=== PATIENT | male | born 1955 | race Two or more races ===

== ENCOUNTER 2024-02-08 06:52 | Inpatient (IN) | payer OTHER, MEDICAID ==
[~2024-02-08] VITALS: Ht 182.9 cm; Wt 116.2 kg
--- NOTE | 2024-02-08 07:08 | ED.PDOC ---
History of Present Illness HPI Comments 68M BIBA w/ prior Hx of 2L, NC of O2 at home and COPD which may be associated to the c/c of congestion. Pt reports on having congestion last night and was unable to breathe due to his "nose all stuffed up". Pt states on having ABD pain this morning as well. Pt notes that he does not walk and is "pretty much" bed bound. PMHx of DM and HTN. Social Hx of tobacco use, but denies substance and alcohol use. Denies chills, fever, N/V/D, CP or other associated symptoms, modifiers, or recent injuries or sick contact at this time. Chief Complaint: Shortness of Breath Time Seen by MD: 07:00 Reviewed Notes: Nurses Notes, Director Of Retail Operations Notes, Medications, Allergies Allergies: Coded Allergies: No Known Drug Allergy (Verified Allergy, Unknown, 02/08/24) Information Source: Patient, Emergency Med Personnel Mode of Arrival: EMS Severity: Moderate Timing: Hours Duration: Since onset, Hours Prehospital treatment: None Past Medical History PAST MEDICAL HISTORY: COPD, DM, HTN Past Medical History (Other): On 2L of O2, NC at home Surgical History: Denies all surgeries Family History Family History: Reviewed,noncontributory to illness, Unknown Social History Smoker: Cigarettes Alcohol: Denies ETOH Use Drugs: Denies Drug Use Lives In: Home Constitutional: denies: chills, diaphoresis, fatigue, fever, malaise, sweats, weakness, others EENTM: denies: blurred vision, double vision, ear bleeding, ear discharge, ear drainage, ear pain, ear ringing, eye pain, eye redness, hearing loss, mouth pain , mouth swelling, nasal discharge, nose bleeding, nose congestion, nose pain, photophobia, tearing, throat pain, throat swelling, voice changes, others Respiratory: reports: SOB at rest, shortness of breath, others (congestion); denies: cough, hemoptysis, orthopnea, SOB with excertion, stridor, wheezing Cardiovascular: denies: chest pain, dizzy spells, diaphoresis, Dyspnea on exertion, edema, irregular heart beat, left arm pain, lightheadedness, palpitations, PND, syncope, others Gastrointestinal: denies: abdomen distended, abdominal pain, blood streaked bowels, constipated, diarrhea, dysphagia, difficulty swallowing, hematemesis, melena, nausea, poor appetite, poor fluid intake, rectal bleeding, rectal pain, vomiting, others Genitourinary: denies: burning, dysuria, flank pain, frequency, hematuria, incontinence, penile discharge, penile sore, pain, testicle pain, testicle swelling, urgency, others Neurological: denies: dizziness, fainting, headache, left sided numbness, left sided weakness, numbness, paresthesia, pre-existing deficit, right sided numbness, right sided weakness, seizure, speech problems, tingling, tremors, weakness, others Musculoskeletal: denies: back pain, gout, joint pain, joint swelling, muscle pain, muscle stiffness, neck pain, others Integumetry: denies: bruises, change in color, change in hair/nails, dryness, laceration, lesions, lumps, rash, wounds, others Allergic/Immunocompromised: denies: Difficulty Healing, Frequent Infections, Hives, Itching, others Hematologic/Lymphatic: denies: anemia, blood clots, easy bleeding, easy bruising, swollen glands, others Endocrine: denies: excessive hunger, excessive sweating, excessive thirst, excessive urination, flushing, intolerance to cold, intolerance to heat, unexplained weight gain, unexplained weight loss, others Psychiatric: denies: anxiety, bipolar disorder, depression, hopeless, panic disorder, schizophrenia, sleepless, suicidal, others All Other Systems: Reviewed and Negative Physical Exam General Appearance: Moderate Distress, Obese HEENT: Normal ENT Inspection, Pharynx Normal, TMs Normal Neck: Full Range of Motion, Non-Tender, Normal, Normal Inspection Respiratory: Chest Non-Tender, Lungs Clear, No Accessory Muscle Use, No Respiratory Distress, Normal Breath Sounds Cardiovascular: No Edema, No JVD, No Murmur, No Gallop, Normal Peripheral Pulses, Regular Rate/Rhythm Breast Exam: Deferred Gastrointestinal: No Organomegaly, Non Tender, No Pulsatile Mass, Normal Bowel Sounds, Soft Genitalia: Deferred Pelvic: Deferred Rectal: Deferred Extremities: No calf tenderness, Normal capillary refill, Normal inspection, Normal range of motion, Non-tender, No pedal edema Musculoskeletal : Apperance: Normal Neurologic: Alert, 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 Was a procedure done?: No Differential Dx Considerations may include: CHF COPD X-Ray, Labs, Meds, VS Vital Signs Date Time Temp Pulse Resp B/P (MAP) Pulse Ox O2 Delivery O2 Flow Rate FiO2 02/08/24 06:58 98.4 82 20 126/61 (82) 98 Patient alert. Complaining of shortness a breath. He is on oxygen. Vitals stable. States that he has been congested. Establish intravenous access. Was given steroid. Was given breathing treatment. EKG reviewed does not show any acute changes. Continues to smoke cigarettes. Counseled patient on effects of smoking cigarettes for 15 minutes. Reviewed his previous visit. Explained to the patient. Continue cardiac monitoring. Time of 1ST Reevaluation: 07:30 Reevaluation 1ST: Unchanged Patient Education/Counseling: Diagnosis, Treatment, Prognosis Family Education/Counseling: No Family Present Departure 1 Departure Time of Disposition: 07:11 Impression: Primary Impression: Acute respiratory failure Qualified Codes: J96.01 - Acute respiratory failure with hypoxia Additional Impressions: COPD exacerbation Pneumonitis Disposition: ADMITTED INPATIENT Admit to: Med Surg Condition: Guarded Critical Care Note Critical Care Time?: Yes (45 min-critical care time only) Stability Stability form required: No Heart Score Heart Score: Heart Score Response (Comments) Value History Slightly Suspicious 0 EKG Normal 0 Age >65 2 Risk Factors >3 or Hx ASHD 2 Troponin Normal limit 0 Total 4 I personally scribed for DANTE HURT MD ([email or web address]) on 02/08/24 at 07:08. Electronically submitted by Cecil Nails ([email or web address]). DANTE HURT MD Feb 08, 2024 07:08
[2024-02-08] MEDS: IPRATROPIUM BROM 0.5 MG/2.5ML INH SOL NEB ONE (07:31)
[2024-02-08] MEDS: ALBUTEROL SULF 2.5 MG/0.5ML(0.5%) NEB SOLN NEB ONE (07:31)
[2024-02-08 07:32] LABS: Chloride 101 mmol/L (98-107); Potassium 3.5 mmol/L (3.5-5.1); Sodium 140 mmol/L (136-145)
[2024-02-08 07:33] LABS: Anion Gap 5 (5-15); Carbon Dioxide 34 mmol/L (20-31)
[2024-02-08 07:34] VITALS: PULSE 80; RESP 22; O2SAT 93
[2024-02-08 07:34] LABS: Calcium 10.1 mg/dL (8.7-10.4)
[2024-02-08 07:38] LABS: Glucose 289 mg/dL (74-106)
[2024-02-08 07:39] LABS: BUN/Creatinine Ratio 17.1 (10.0-20.0); Blood Urea Nitrogen 14 mg/dL (9-23)
[2024-02-08 07:42] LABS: Basophils # (auto) 0 10 ^3/uL (0-0.2); Basophils % (auto) 0.3 % (0.0-2.0); Eosinophils # (auto) 0 10 ^3/uL (0-0.8); Eosinophils % (auto) 0.3 % (0.0-7.0); Hemoglobin 11.2 g/dL (13.5-17.5); Lymphocytes # (auto) 0.8 10 ^3/uL (0.4-5.4); Lymphocytes % (auto) 9.7 % (10.0-50.0); Monocytes # (auto) 0.4 10 ^3/uL (0-1.3)
[2024-02-08 07:45] LABS: Hematocrit 34.5 % (41.0-53.0); Mean Corpuscular Hemoglobin 25.9 pg (28.0-32.0); Mean Corpuscular Hgb Conc. 32.4 g/dL (32.0-36.0); Monocytes % (auto) 4.1 % (0.0-12.0); Neutrophils # (auto) 7.3 10 ^3/uL (1.6-8.6); Neutrophils % (auto) 85.6 % (37.0-80.0); Platelet Count (auto) 172 10^3/uL (140-450); Red Blood Cells 4.31 10^6/uL (4.5-5.90); Red Cell Distribution Width 16.5 % (11.8-14.3); White Blood Cell 8.6 10^3/uL (4.4-10.8)
--- NOTE | 2024-02-08 08:00 | DVH ---
CHEST RADIOGRAPH Indication:sob Technique: Single frontal view of the chest was obtained COMPARISON: None FINDINGS: Lines and Tubes: None Lungs: Mild congestion. Pleura: Possible trace bilateral pleural effusions. No pneumothorax. Cardiomediastinal contours: Unremarkable Bones: Unremarkable IMPRESSION: Mild congestion. Possible trace bilateral pleural effusions.
[2024-02-08] MEDS: methylPREDNISolone SOD SUCC 125 MG/2 ML VL IV ONE (08:06)
[2024-02-08] MEDS ORDERED: ACETAMINOPHEN 325 MG TAB PO PRN (08:45)
[2024-02-08] MEDS ORDERED: TEMAZEPAM 15 MG CAP PO PRN (08:45)
[2024-02-08] MEDS ORDERED: DEXTROSE (50%) 50ML SYRG IV PRN (08:45)
[2024-02-08] MEDS ORDERED: DOCUSATE SOD 100 MG CAP PO PRN (08:45)
[2024-02-08 09:10] VITALS: BP 139/64; PULSE 77; RESP 14; TEMP 98.3; O2SAT 97
[2024-02-08] MEDS: AZITHROMYCIN 250 MG TAB PO SCH (10:29)
[2024-02-08] MEDS: cefTRIAXone 1GM/50ML D5W 50 ML IV SCH (10:29)
--- NOTE | 2024-02-08 10:47 | DVHHP2 ---
History of Present Illness Reason for Visit: shortness of breath History of Present Illness 68 yo obese male from rehab facility came for acute shortness of breath patient with history COPD DM HTN and at baseline on 2 L nasal canal was having severe respiratory distress brought in by patient according to patient facility had him on oxygen that started having water in the line and he was having a lot of water go in his lungs patient will be admitted for copd exacerbation and treated as PNA development Cardiovascular: HTN Pulmonary: COPD, Pneumonia GI: Other (obese ) Endocrine: Diabetes Smoke: # pack years (heavy smoker ) Review of Systems Constitutional: Yes: Weakness; No: Fever, Chills, Sweats, Malaise, Other Eyes: No: Pain, Vision change, Conjunctivae inflammation, Eyelid inflammation, Other, Redness Respiratory: Cough, Shortness of breath, SOB with excertion, Wheezing; No: Dry, Hemoptysis, Pleuritic Pain, Sputum, Wheezing, Other Cardiovascular: No: Chest Pain, Palpitations, Orthopnea, Paroxysmal Noc. Dyspnea, Edema, Lt Headedness, Other Gastrointestinal: No: Nausea, Vomiting, Abdominal Pain, Diarrhea, Constipation, Melena, Hematochezia, Other Genitourinary: No Dysuria, No Frequency, No Incontinence, No Hematuria, No Retention, No Other Musculoskeletal: No: other, neck pain, shoulder pain, arm pain, back pain, hand pain, leg pain, foot pain Skin: No: Rash, Lesions, Jaundice, Bruising, Other Neurological: No: Weakness, Numbness, Incoordination, Change in speech, Confusion, Seizures, Other Allergies: Coded Allergies: No Known Drug Allergy (Verified Allergy, Unknown, 02/08/24) Medications Current Medications Medications Dose Ordered Sig/Miracle Route Start Time Stop Time Status Last Admin Dose Admin Docusate Sodium 100 mg BIDPRN PRN PO 02/08/24 08:45 Acetaminophen 650 mg Q6HP PRN PO 02/08/24 08:45 Temazepam 15 mg QHSP PRN PO 02/08/24 08:45 Acetaminophen/ Hydrocodone Bitart 1 tab Q4HP PRN PO 02/08/24 08:45 Diagnostic Test (Pha) 1 strip ACHS 02/08/24 11:30 Insulin Human Regular HS SC 02/08/24 22:00 Insulin Human Regular AC SC 02/08/24 11:30 Dextrose 50 ml UD PRN IV 02/08/24 08:45 Methylprednisolone Sodium Succinate 40 mg Q8HR IV 02/08/24 14:00 Albuterol 2.5 mg Q4HWA PRN NEB 02/08/24 08:45 Ipratropium [place] 0.5 mg Q4HWA PRN NEB 02/08/24 08:45 Ceftriaxone Sodium 50 ml @ 100 mls/hr DAILY IV 02/08/24 10:00 02/08/24 10:29 100 MLS/HR Azithromycin 250 mg DAILY PO 02/08/24 10:00 02/08/24 10:29 250 MG Exam Vital Signs Vital Signs Date Time Temp Pulse Resp B/P (MAP) Pulse Ox O2 Delivery O2 Flow Rate FiO2 02/08/24 09:48 89 02/08/24 09:10 98.3 14 139/64 97 2.0 98.3 02/08/24 07:34 Nasal Cannula* 28 General Appearance: Alert, Oriented X3 HEENT: Atraumatic, PERRLA Respiratory: Other (wheezing improving ) Cardiovascular: Regular rate, Normal S1 Abdominal: Normal bowel sounds, Soft, No tenderness Extremities: No clubbing, No cyanosis Skin: No rashes, No breakdown Neuro: Normal speech, Strength at 5/5 X4 ext Labs/Xrays Labs Test 02/08/24 07:12 Range/Units White Blood Count 8.6 4.4-10.8 10^3/uL Red Blood Count 4.31 L 4.5-5.90 10^6/uL Hemoglobin 11.2 L 13.5-17.5 g/dL Hematocrit 34.5 L 41.0-53.0 % Mean Corpuscular Volume 80.0 80.0-100.0 fL Mean Corpuscular Hemoglobin 25.9 L 28.0-32.0 pg Mean Corpuscular Hemoglobin Concent 32.4 32.0-36.0 g/dL Red Cell Distribution Width 16.5 H 11.8-14.3 % Platelet Count 172 140-450 10^3/uL Mean Platelet Volume 9.9 6.9-10.8 fL Neutrophils (%) (Auto) 85.6 H 37.0-80.0 % Lymphocytes (%) (Auto) 9.7 L 10.0-50.0 % Monocytes (%) (Auto) 4.1 0.0-12.0 % Eosinophils (%) (Auto) 0.3 0.0-7.0 % Basophils (%) (Auto) 0.3 0.0-2.0 % Neutrophils # (Auto) 7.3 1.6-8.6 10 ^3/uL Lymphocytes # (Auto) 0.8 0.4-5.4 10 ^3/uL Monocytes # (Auto) 0.4 0-1.3 10 ^3/uL Eosinophils # (Auto) 0 0-0.8 10 ^3/uL Basophils # (Auto) 0 0-0.2 10 ^3/uL Nucleated Red Blood Cells 0.0 % Sodium Level 140 136-145 mmol/L Potassium Level 3.5 3.5-5.1 mmol/L Chloride Level 101 98-107 mmol/L Carbon Dioxide Level 34 H 20-31 mmol/L Anion Gap 5 5-15 Blood Urea Nitrogen 14 9-23 mg/dL Creatinine 0.82 0.700-1.30 mg/dL Glomerular Filtration Rate Calc 96 >90 mL/min BUN/Creatinine Ratio 17.1 10.0-20.0 Serum Glucose 289 H 74-106 mg/dL Calcium Level 10.1 8.7-10.4 mg/dL Troponin I High Sensitivity 8 </=54 ng/L B-Type Natriuretic Peptide 38.19 0-100 pg/mL Assessment/Plan Assessment/Plan Admit To Tele COPD Exacerbation suspected super imposed PNA PO and IV abx PRN Breathing treatments duonebs steroids q8 low dose DM monitor for hyperglycemia while on steroids insulin sliding scale morbidly obese diabetic diet HTN c/w home meds for bp management Plan discussed with: Patient My Orders Orders - DOUG HARRISON MD Procedure Category Date Status Time Admit ADMIT 02/08/24 Transmitted 08:35 Code Status CODE 02/08/24 Transmitted 08:35 Vital Signs [facility] 02/08/24 In Process 08:35 Review Orders With [facility] 02/08/24 In Process Adm. 08:35 Docusate Sodium PHA 02/08/24 In Process Capsule (Colace 08:45 Acetaminophen Tablet PHA 02/08/24 In Process (Tylenol Tablet) 08:45 Temazepam (Restoril) PHA 02/08/24 In Process 08:45 Notify Of Changes [facility] 02/08/24 In Process From Base 08:35 Advance Directive [facility] 02/08/24 In Process 08:35 Basic Metabolic Panel LAB 02/09/24 Verified 04:00 Complete Blood Count LAB 02/09/24 Verified 04:00 Patient Condition ORDERS 02/08/24 Transmitted 08:35 Allergies [facility] 02/08/24 In Process 08:35 Hydrocodone-Acet PHA 02/08/24 In Process 5/325mg Tab ([place] 08:45 Notify Md Of Changes [facility] 02/08/24 In Process From Base 08:35 Die Lay Out Worker For D[facility] 02/08/24 In Process 24 Hours 08:35 Emergency Dysrhythmia [facility] 02/08/24 In Process Protocol 08:35 Rhythm Strips Once [facility] 02/08/24 In Process Every Shift 08:35 Oxygen By Nasal RT 02/08/24 Transmitted Cannula 08:35 Glucose Blood PHA 02/08/24 In Process (Accu-Chek Comfort 11:30 Insulin R (Human) PHA 02/08/24 In Process (Insulin R) 22:00 Insulin R (Human) PHA 02/08/24 In Process (Insulin R) 11:30 Dextrose 50% Syringe PHA 02/08/24 In Process 08:45 Methylprednisolone PHA 02/08/24 In Process Sod Succ (Solu Medrol 14:00 Albuterol Medneb PHA 02/08/24 In Process (Ventolin Medneb) 08:45 Ipratropium Medneb PHA 02/08/24 In Process (Atrovent Medneb) 08:45 Med Neb Initial RT 02/08/24 Logged Treatment 08:35 Ceftriaxone 1gm/50ml PHA 02/08/24 In Process D5w (Rocephin) 10:00 Azithromycin Tablet PHA 02/08/24 In Process (Zithromax Tablet) 10:00 Problem List: (1) Acute respiratory failure (2) Pneumonitis (3) COPD exacerbation Date of Service: Feb 08, 2024 Billing Provider: DOUG HARRISON MD Common Visit Codes: [id number] INP/OBS CARE (HIGH) DOUG HARRISON MD Feb 08, 2024 10:47
[2024-02-08] MEDS: InsuLIN REG 1unit/0.01ml Soln (100units/ml) SC SCH ×2 (11:38→21:14)
[2024-02-08] MEDS: ACCU-CHEK COMFORT CURVE STRIP VI SCH (11:40)
[2024-02-08] MEDS: HYDROcodone-ACET 5/325MG TAB PO PRN (13:08)
[2024-02-08] MEDS: methylPREDNISolone SOD SUCC 40 MG/ML VL IV SCH (14:28)
[2024-02-08 15:00] VITALS: BP 150/81; PULSE 80; RESP 14; TEMP 98.1; O2SAT 92
[2024-02-08 18:55] VITALS: O2SAT 96
[2024-02-08 20:00] VITALS: PULSE 65; PULSE 72; RESP 20; O2SAT 93
[2024-02-08 21:00] VITALS: BP 146/63; PULSE 65; RESP 20; TEMP 98.5; O2SAT 93
[2024-02-09] VITALS (10 sets, daily range): BP systolic 133–159; BP diastolic 61–82; PULSE 66–86; RESP 18–19; TEMP 97.6–98.6; O2SAT 93–98
[2024-02-09] MEDS: InsuLIN REG 1unit/0.01ml Soln (100units/ml) SC SCH ×3 (01:49→21:10)
[2024-02-09 06:19] LABS: Basophils # (auto) 0 10 ^3/uL (0-0.2); Basophils % (auto) 0.1 % (0.0-2.0); Eosinophils # (auto) 0 10 ^3/uL (0-0.8); Hemoglobin 10.6 g/dL (13.5-17.5); Lymphocytes # (auto) 1.4 10 ^3/uL (0.4-5.4); Monocytes # (auto) 0.7 10 ^3/uL (0-1.3)
[2024-02-09 06:30] LABS: Hematocrit 32.4 % (41.0-53.0); Lymphocytes % (auto) 15.3 % (10.0-50.0); Mean Corpuscular Hemoglobin 25.8 pg (28.0-32.0); Mean Corpuscular Hgb Conc. 32.7 g/dL (32.0-36.0); Monocytes % (auto) 7.3 % (0.0-12.0); Neutrophils # (auto) 7.2 10 ^3/uL (1.6-8.6); Neutrophils % (auto) 77.3 % (37.0-80.0); Platelet Count (auto) 178 10^3/uL (140-450); Red Cell Distribution Width 16.6 % (11.8-14.3); White Blood Cell 9.3 10^3/uL (4.4-10.8)
[2024-02-09 06:34] LABS: Anion Gap 8 (5-15); Carbon Dioxide 32 mmol/L (20-31); Chloride 101 mmol/L (98-107); Sodium 141 mmol/L (136-145)
[2024-02-09 06:35] LABS: Calcium 10.2 mg/dL (8.7-10.4)
[2024-02-09 06:40] LABS: BUN/Creatinine Ratio 17.7 (10.0-20.0); Blood Urea Nitrogen 14 mg/dL (9-23); Glucose 269 mg/dL (74-106)
--- NOTE | 2024-02-09 11:28 | DVHPN2 ---
Subjective The patient is seen and examined at bedside. No complaint today. Reviewed: Care Plan, H&P, Labs, Medications, Previous Orders, Radiology Changes from previous H/P or p: No Changes Eyes: No Pain, No Vision change, No Conjunctivae inflammation, No Eyelid inflammation, No Other, No Redness Cardiovascular: No Chest Pain, No Palpitations, No Orthopnea, No Paroxysmal Noc. Dyspnea, No Edema, No Lt Headedness, No Other Respiratory: Cough; No Dry; Shortness of breath, SOB with excertion, Wheezing; No Hemoptysis, No Pleuritic Pain, No Sputum, No Other Gastrointestinal: No Nausea, No Vomiting, No Abdominal Pain, No Diarrhea, No Constipation, No Melena, No Hematochezia, No Other Genitourinary: No Dysuria, No Frequency, No Incontinence, No Hematuria, No Retention, No Other Musculoskeletal: No other, No neck pain, No shoulder pain, No arm pain, No back pain, No hand pain, No leg pain, No foot pain Skin: No Rash, No Lesions, No Jaundice, No Bruising, No Other Objective Vitals Vital Signs Date Time Temp Pulse Resp B/P (MAP) Pulse Ox O2 Delivery O2 Flow Rate FiO2 02/09/24 10:16 98 Nasal Cannula* 2 28 02/09/24 09:00 97.6 68 18 133/64 (87) 97.6 Intake/Output Intake and Output 02/09/24 07:00 Intake Total 420 ml Output Total 450 ml Balance -30 ml Intake Oral 370 ml IV Total 50 ml Output Urine Total 450 ml # Voids 2 # Bowel Movements 2 General Appearance: Alert, Oriented X3, Cooperative, No acute distress HEENT: Atraumatic, PERRLA, EOMI, Mucous membr. moist/pink Neck: Supple Lungs: Clear to auscultation, Normal air movement Cardiovascular: Regular rate, Normal S1, Normal S2, No murmurs, Gallops, Rubs Abdomen: Normal bowel sounds, Soft, No tenderness Neuro: Cranial nerves 3-12 NL Psych/Mental Status: Mental status NL Medications Current Medications Medications Dose Ordered Sig/Miracle Route Start Time Stop Time Status Last Admin Dose Admin Docusate Sodium 100 mg BIDPRN PRN PO 02/08/24 08:45 Acetaminophen 650 mg Q6HP PRN PO 02/08/24 08:45 Temazepam 15 mg QHSP PRN PO 02/08/24 08:45 Acetaminophen/ Hydrocodone Bitart 1 tab Q4HP PRN PO 02/08/24 08:45 02/09/24 10:26 1 TAB Diagnostic Test (Pha) 1 strip ACHS 02/08/24 11:30 02/09/24 06:25 1 STRIP Insulin Human Regular HS SC 02/08/24 22:00 02/08/24 21:14 10 UNITS Dextrose 50 ml UD PRN IV 02/08/24 08:45 Methylprednisolone Sodium Succinate 40 mg Q8HR IV 02/08/24 14:00 02/09/24 06:32 40 MG Albuterol 2.5 mg Q4HWA PRN NEB 02/08/24 08:45 Ipratropium [place] 0.5 mg Q4HWA PRN NEB 02/08/24 08:45 Ceftriaxone Sodium 50 ml @ 100 mls/hr DAILY IV 02/08/24 10:00 02/09/24 10:26 100 MLS/HR Azithromycin 250 mg DAILY PO 02/08/24 10:00 02/09/24 10:26 250 MG Insulin Human Regular Q4HR SC 02/09/24 02:00 02/09/24 10:47 12 UNITS Laboratory Results Laboratory Tests 02/09/24 05:47 Chemistry Test 02/09/24 05:47 Calcium Level 10.2 mg/dL (8.7-10.4) Labs and/or images reviewed: Labs reviewed by me Assessment/Plan Assessment/Plan COPD Exacerbation suspected super imposed PNA DM HTN Plan: Continuing current management. Continuing with IV antibiotic. Continuing with sliding scale insulin. Continuing with Solu-Medrol IV. Continuing with hypertensive medication. Plan discussed with: Patient My Orders Orders - OLAYINKA TIDWELL MD Procedure Category Date Status Time Potassium Er Tablet PHA 02/09/24 Logged (Klor-Con Tablet) 11:00 Date of Service: Feb 09, 2024 Billing Provider: OLAYINKA TIDWELL MD Common Visit Codes: [id number] INP/OBS CARE(HIGH) OLAYINKA TIDWELL MD Feb 09, 2024 11:28
[2024-02-09] MEDS: POTASSIUM CHL 20 Meq TABLET PO ONE (13:56)
[2024-02-09] MEDS ORDERED: DEXTROSE (50%) 50ML SYRG IV PRN (15:15)
[2024-02-09] MEDS: ACCU-CHEK COMFORT CURVE STRIP VI SCH (17:30)
[2024-02-09] MEDS: INSULIN LANTUS (GLARGINE) 1 /0.01ml (100units/ml) SC SCH (21:11)
[2024-02-10] VITALS (12 sets, daily range): BP systolic 151–168; BP diastolic 72–90; PULSE 62–73; RESP 18–22; TEMP 97.6–99.1; O2SAT 93–99
--- NOTE | 2024-02-10 13:40 | DVHDS2 ---
Discharge Summary Date of Admission Feb 08, 2024 at 08:35 Date of Discharge: Feb 10, 2024 Labs/Diagnostic Data: Laboratory Results Test 02/10/24 11:24 02/09/24 05:47 02/08/24 07:12 POC Glucose 314 mg/dl (70-106) White Blood Count 9.3 10^3/uL (4.4-10.8) Red Blood Count 4.10 10^6/uL (4.5-5.90) Hemoglobin 10.6 g/dL (13.5-17.5) Hematocrit 32.4 % (41.0-53.0) Mean Corpuscular Volume 79.0 fL (80.0-100.0) Mean Corpuscular Hemoglobin 25.8 pg (28.0-32.0) Mean Corpuscular Hemoglobin Concent 32.7 g/dL (32.0-36.0) Red Cell Distribution Width 16.6 % (11.8-14.3) Platelet Count 178 10^3/uL (140-450) Mean Platelet Volume 9.8 fL (6.9-10.8) Neutrophils (%) (Auto) 77.3 % (37.0-80.0) Lymphocytes (%) (Auto) 15.3 % (10.0-50.0) Monocytes (%) (Auto) 7.3 % (0.0-12.0) Eosinophils (%) (Auto) 0.0 % (0.0-7.0) Basophils (%) (Auto) 0.1 % (0.0-2.0) Neutrophils # (Auto) 7.2 10 ^3/uL (1.6-8.6) Lymphocytes # (Auto) 1.4 10 ^3/uL (0.4-5.4) Monocytes # (Auto) 0.7 10 ^3/uL (0-1.3) Eosinophils # (Auto) 0 10 ^3/uL (0-0.8) Basophils # (Auto) 0 10 ^3/uL (0-0.2) Nucleated Red Blood Cells 0.0 % Sodium Level 141 mmol/L (136-145) Potassium Level 3.0 mmol/L (3.5-5.1) Chloride Level 101 mmol/L (98-107) Carbon Dioxide Level 32 mmol/L (20-31) Anion Gap 8 (5-15) Blood Urea Nitrogen 14 mg/dL (9-23) Creatinine 0.79 mg/dL (0.700-1.30) Glomerular Filtration Rate Calc 97 mL/min (>90) BUN/Creatinine Ratio 17.7 (10.0-20.0) Serum Glucose 269 mg/dL (74-106) Calcium Level 10.2 mg/dL (8.7-10.4) Troponin I High Sensitivity 8 ng/L (</=54) B-Type Natriuretic Peptide 38.19 pg/mL (0-100) Other Laboratory Tests 02/09/24 05:47 Brief Hx & Hospital Course: 68 yo obese male from rehab facility came for acute shortness of breath patient with history COPD DM HTN and at baseline on 2 L nasal canal was having severe respiratory distress brought in by patient according to patient facility had him on oxygen that started having water in the line and he was having a lot of water go in his lungs patient will be admitted for copd exacerbation and treated as PNA development COPD Exacerbation suspected super imposed PNA DM HTN continue current tx supplemental o2 discharged to home but pt states he is not feeling well and would like to be discharged in AM Condition at Discharge: Fair Final Diagnosis/Problems List see above Discharge Disposition: Home Discharge Statement: "Patient was advised to return to the ER or call 911 if any headaches, dizziness, shortness of breath, chest pain, abdominal pain, bleeding, fevers, or worsening of medical condition. Patient was counseled about treatment plan, medications, possible side effects, patientverbalized understanding. All questions were answered to the best of my ability. This discharge took greater then 30 minutes in planning, reviewing documentation, counseling the patient, and discussing with other team members." ASSESSMENT ASSESSMENT Assessment Date of Service: Feb 10, 2024 Billing Provider: KAMI MOSES DO Common Visit Codes: 61031-BPD/OBS DISCH DAY >30min KAMI MOSES DO Feb 10, 2024 13:40
[2024-02-10] MEDS: hydrALAZINE HCL 20 MG/ML VL IV PRN (17:48)
[2024-02-10] MEDS: ALBUTEROL SULF 2.5 MG/0.5ML(0.5%) NEB SOLN NEB PRN (22:24)
[2024-02-10] MEDS: IPRATROPIUM BROM 0.5 MG/2.5ML INH SOL NEB PRN (22:24)
[2024-02-11] VITALS (7 sets, daily range): BP systolic 133–168; BP diastolic 70–102; PULSE 61–68; RESP 18–22; TEMP 97.4–98.2; O2SAT 94–98
--- NOTE | 2024-02-11 12:57 | DVHINCON2 ---
Date of service: Feb 10, [address] Hawk Reason for Consultation AE COPD History of Present Illness 60-year-old man history of COPD, diabetes mellitus type 2, hypertension who presented with a chief complaint of congestion and wheezing. He was having difficulty breathing due to congestion. He notes abdominal pain. He was bed- bound. He was an active smoker. No fever or chills. No nausea or vomiting or diarrhea. No constipation. No recent sick contacts. No recent travel history. Pulmonary consultation is called due to acute exacerbation of COPD. Review of systems: 14 point review of systems is negative unless otherwise noted above. Past medical history: COPD, diabetes mellitus type 2, hypertension, nicotine dependence, obesity , chronic hypoxic respiratory failure, dependence on supplemental oxygen Past surgical history: None mentioned in prior surgeries. Medications: Reviewed Allergies: No known drug allergy. Family history: No family history of premature CAD. No family history of lung disease Social history: Nicotine dependence, cigarette smoker. No Alcohol use. No illicit drug use. Family History: FHx: heart disease G8 MOTHER Seizure disorder G8 BROTHER Allergies: Coded Allergies: No Known Drug Allergy (Verified Allergy, Unknown, 02/08/24) Current Medications Current Medications Medications (Trade) Dose Ordered Sig/Miracle Route PRN Reason Start Time Stop Time Status Last Admin Hydralazine HCl (Apresoline Injection) 10 mg Q6HP PRN IV SBP>150 02/10/24 17:15 02/10/24 17:48 Vital Signs Vital Signs Date Time Temp Pulse Resp B/P (MAP) Pulse Ox O2 Delivery O2 Flow Rate FiO2 02/11/24 09:00 98.2 66 21 159/75 (103) 94 98.2 02/11/24 08:58 2.0 28 02/11/24 07:26 Nasal Cannula* Physical Exam Gen.: Patient lying in bed in mild apparent distress. On supplemental oxygen. Head: Normocephalic, atraumatic Eyes: EOMI/PERRLA. Ears: Normal hearing. Normal anatomy. Neck/trachea: Trachea midline, supple. Nose: Normal external anatomy. Mouth: Moist mucous membranes. Chest: Decreased air entry bilaterally. Faint wheezing. No rhonchi. Cardio vascular: Positive S1, positive S2. Regular rate and rhythm. Abdomen: Positive bowel sounds in all 4 quadrants. Soft, non-tender, non- distended. : Deferred. Rectal: Deferred Skin: Warm, dry. Extremities: 2+ radial pulses bilaterally. No lower extremity edema. Neuro: Awake, alert, oriented x3. No gross motor or sensory deficits. Cranial nerves II through XII intact. Gait not assessed. Labs/Diagnostic Data Labs Test 02/11/24 11:57 02/09/24 05:47 02/08/24 07:12 Range/Units POC Glucose 337 H 70-106 mg/dl White Blood Count 9.3 4.4-10.8 10^3/uL Red Blood Count 4.10 L 4.5-5.90 10^6/uL Hemoglobin 10.6 L 13.5-17.5 g/dL Hematocrit 32.4 L 41.0-53.0 % Mean Corpuscular Volume 79.0 L 80.0-100.0 fL Mean Corpuscular Hemoglobin 25.8 L 28.0-32.0 pg Mean Corpuscular Hemoglobin Concent 32.7 32.0-36.0 g/dL Red Cell Distribution Width 16.6 H 11.8-14.3 % Platelet Count 178 140-450 10^3/uL Mean Platelet Volume 9.8 6.9-10.8 fL Neutrophils (%) (Auto) 77.3 37.0-80.0 % Lymphocytes (%) (Auto) 15.3 10.0-50.0 % Monocytes (%) (Auto) 7.3 0.0-12.0 % Eosinophils (%) (Auto) 0.0 0.0-7.0 % Basophils (%) (Auto) 0.1 0.0-2.0 % Neutrophils # (Auto) 7.2 1.6-8.6 10 ^3/uL Lymphocytes # (Auto) 1.4 0.4-5.4 10 ^3/uL Monocytes # (Auto) 0.7 0-1.3 10 ^3/uL Eosinophils # (Auto) 0 0-0.8 10 ^3/uL Basophils # (Auto) 0 0-0.2 10 ^3/uL Nucleated Red Blood Cells 0.0 % Sodium Level 141 136-145 mmol/L Potassium Level 3.0 L 3.5-5.1 mmol/L Chloride Level 101 98-107 mmol/L Carbon Dioxide Level 32 H 20-31 mmol/L Anion Gap 8 5-15 Blood Urea Nitrogen 14 9-23 mg/dL Creatinine 0.79 0.700-1.30 mg/dL Glomerular Filtration Rate Calc 97 >90 mL/min BUN/Creatinine Ratio 17.7 10.0-20.0 Serum Glucose 269 H 74-106 mg/dL Calcium Level 10.2 8.7-10.4 mg/dL Troponin I High Sensitivity 8 </=54 ng/L B-Type Natriuretic Peptide 38.19 0-100 pg/mL Assessment Impression: Acute exacerbation of COPD Chronic hypoxic respiratory failure Dependence on supplemental oxygen Nicotine dependence Obesity with a BMI of 34.7 Pleural effusion , trace, bilaterally Atelectasis Hypokalemia Plan: CXR image and report reviewed. Mild pulmonary vascular congestion. Trace bilateral pleural effusions. Atelectasis. Supplemental oxygen 2 LPM via NC Keep O2 saturation above 92%. Continue antibiotics for AE COPD. Bronchodilators IV steroids, taper as tolerated Monitor renal function. Monitor electrolytes. Supplement as necessary. Accucheks, ISS. GI/DVT prophylaxis. Prognosis: Poor given multiple comorbidities. Rest of plan per hospitalist and other consultants. Thank you Dr. Hawk for allowing me to participate in this patient's care. Further recommendations will depend on patient's clinical course. Please do not hesitate to contact me if you have any questions or concerns. This medical document was created using an electronic medical record system with [employer] dictation system. Although this document has been carefully reviewed, there may still be some phonetic and typographical errors. These ar eas are purely typographical due to imperfections of the software programs, and do not reflect any compromise in the patient's medical care. Plan discussed with: Patient, Other (CAMILA Cifuentes MD) DARSHAN WAN MD Feb 11, 2024 12:57
--- NOTE | 2024-02-11 13:00 | DVHPN2 ---
Progress Note - Dictate Date Seen: Feb 11, 2024 Medical Necessity Reason Pt with a Central, PICC or Fol: No Subjective Patient seen and examined at bedside. No new complaints. On supplemental oxygen Overnight events reviewed. vital signs Vital Sign Date Time Temp Pulse Resp B/P (MAP) Pulse Ox O2 Delivery O2 Flow Rate FiO2 02/11/24 09:00 98.2 66 21 159/75 (103) 94 98.2 02/11/24 08:58 2.0 28 02/11/24 07:26 Nasal Cannula* Total Intake and Output 02/10/24 02/10/24 02/11/24 15:00 23:00 07:00 Intake Total 50 ml 800 ml 825 ml Balance 50 ml 800 ml 825 ml medications Current Medications Medications Dose Ordered Sig/Miracle Route Start Time Stop Time Status Last Admin Dose Admin Docusate Sodium 100 mg BIDPRN PRN PO 02/08/24 08:45 Acetaminophen 650 mg Q6HP PRN PO 02/08/24 08:45 Temazepam 15 mg QHSP PRN PO 02/08/24 08:45 Acetaminophen/ Hydrocodone Bitart 1 tab Q4HP PRN PO 02/08/24 08:45 02/11/24 02:10 Methylprednisolone Sodium Succinate 40 mg Q8HR IV 02/08/24 14:00 02/11/24 06:39 Albuterol 2.5 mg Q4HWA PRN NEB 02/08/24 08:45 02/11/24 07:26 Ipratropium [place] 0.5 mg Q4HWA PRN NEB 02/08/24 08:45 02/11/24 07:26 Ceftriaxone Sodium 50 ml @ 100 mls/hr DAILY IV 02/08/24 10:00 02/11/24 10:10 Azithromycin 250 mg DAILY PO 02/08/24 10:00 02/11/24 10:09 Insulin Glargine 20 units BID@1000,2200 SC 02/09/24 22:00 02/11/24 10:09 Diagnostic Test (Pha) 1 strip ACHS 02/09/24 17:00 02/11/24 11:30 Insulin Human Regular AC SC 02/09/24 17:00 02/11/24 12:04 Insulin Human Regular HS SC 02/09/24 22:00 02/10/24 21:00 Dextrose 50 ml UD PRN IV 02/09/24 15:15 Hydralazine HCl 10 mg Q6HP PRN IV 02/10/24 17:15 02/10/24 17:48 objective Gen.: Patient lying in bed in mild apparent distress. On supplemental oxygen. Head: Normocephalic, atraumatic Eyes: EOMI/PERRLA. Ears: Normal hearing. Normal anatomy. Neck/trachea: Trachea midline, supple. Nose: Normal external anatomy. Mouth: Moist mucous membranes. Chest: Decreased air entry bilaterally. Wheezing resolved. No rhonchi. Cardio vascular: Positive S1, positive S2. Regular rate and rhythm. Abdomen: Positive bowel sounds in all 4 quadrants. Soft, non-tender, non- distended. : Deferred. Rectal: Deferred Skin: Warm, dry. Extremities: 2+ radial pulses bilaterally. No lower extremity edema. Neuro: Awake, alert, oriented x3. No gross motor or sensory deficits. Cranial nerves II through XII intact. Gait not assessed laboratory and microbiology Laboratory Tests 02/09/24 05:47 Test 02/09/24 05:47 Range/Units Serum Glucose 269 H 74-106 mg/dL Assessment/Plan Impression: Acute exacerbation of COPD Chronic hypoxic respiratory failure Dependence on supplemental oxygen Nicotine dependence Obesity with a BMI of 34.7 Pleural effusion , trace, bilaterally Atelectasis Hypokalemia Events: Patient feeling better. Wheezing resolved. Complete steroid course Transitioned to prednisone on discharge. Complete antibiotic course for acute exacerbation of COPD. Continue bronchodilators on discharge. Patient is stable from pulmonary standpoint for discharge. Plan: CXR image and report reviewed. Mild pulmonary vascular congestion. Trace bilateral pleural effusions. Atelectasis. Supplemental oxygen 2 LPM via NC Keep O2 saturation above 92%. Continue antibiotics for AE COPD. Bronchodilators IV steroids, taper as tolerated Monitor renal function. Monitor electrolytes. Supplement as necessary. Accucheks, ISS. GI/DVT prophylaxis. Prognosis: Poor given multiple comorbidities. Rest of plan per hospitalist and other consultants. Thank you Dr. Hawk for allowing me to participate in this patient's care. Further recommendations will depend on patient's clinical course. Please do not hesitate to contact me if you have any questions or concerns. This medical document was created using an electronic medical record system with [employer] system. Although this document has been carefully reviewed, there may still be some phonetic and typographical errors. These areas are purely typographical due to imperfections of the software programs, and do not reflect any compromise in the patient's medical care. Plan discussed with: Patient, Other (CAMILA Dyer MD) DARSHAN WAN MD Feb 11, 2024 13:00
--- NOTE | 2024-02-11 13:30 | DVHPN2 ---
Reviewed: Care Plan, H&P, Labs, Medications, Previous Orders, Radiology Changes from previous H/P or p: No Changes General: Per HPI Eyes: No Pain, No Vision change, No Conjunctivae inflammation, No Eyelid inflammation, No Other, No Redness Cardiovascular: No Chest Pain, No Palpitations, No Orthopnea, No Paroxysmal Noc. Dyspnea, No Edema, No Lt Headedness, No Other Respiratory: Cough; No Dry; Shortness of breath, SOB with excertion, Wheezing; No Hemoptysis, No Pleuritic Pain, No Sputum, No Other Gastrointestinal: No Nausea, No Vomiting, No Abdominal Pain, No Diarrhea, No Constipation, No Melena, No Hematochezia, No Other Genitourinary: No Dysuria, No Frequency, No Incontinence, No Hematuria, No Retention, No Other Musculoskeletal: No other, No neck pain, No shoulder pain, No arm pain, No back pain, No hand pain, No leg pain, No foot pain Skin: No Rash, No Lesions, No Jaundice, No Bruising, No Other Objective Vitals Vital Signs Date Time Temp Pulse Resp B/P (MAP) Pulse Ox O2 Delivery O2 Flow Rate FiO2 02/11/24 13:00 97.9 68 21 165/76 (105) 96 97.9 02/11/24 08:58 2.0 28 02/11/24 07:26 Nasal Cannula* Intake/Output Intake and Output 02/11/24 07:00 Intake Total 1675 ml Balance 1675 ml Intake Oral 1625 ml IV Total 50 ml # Voids 9 # Bowel Movements 2 Medications Current Medications Medications Dose Ordered Sig/Miracle Route Start Time Stop Time Status Last Admin Dose Admin Docusate Sodium 100 mg BIDPRN PRN PO 02/08/24 08:45 Acetaminophen 650 mg Q6HP PRN PO 02/08/24 08:45 Temazepam 15 mg QHSP PRN PO 02/08/24 08:45 Acetaminophen/ Hydrocodone Bitart 1 tab Q4HP PRN PO 02/08/24 08:45 02/11/24 02:10 1 TAB Methylprednisolone Sodium Succinate 40 mg Q8HR IV 02/08/24 14:00 02/11/24 06:39 40 MG Albuterol 2.5 mg Q4HWA PRN NEB 02/08/24 08:45 02/11/24 07:26 2.5 MG Ipratropium [place] 0.5 mg Q4HWA PRN NEB 02/08/24 08:45 02/11/24 07:26 0.5 MG Ceftriaxone Sodium 50 ml @ 100 mls/hr DAILY IV 02/08/24 10:00 02/11/24 10:10 100 MLS/HR Azithromycin 250 mg DAILY PO 02/08/24 10:00 02/11/24 10:09 250 MG Insulin Glargine 20 units BID@1000,2200 SC 02/09/24 22:00 02/11/24 10:09 20 UNITS Diagnostic Test (Pha) 1 strip ACHS 02/09/24 17:00 02/11/24 11:30 1 STRIP Insulin Human Regular AC SC 02/09/24 17:00 02/11/24 12:04 16 UNITS Insulin Human Regular HS SC 02/09/24 22:00 02/10/24 21:00 6 UNITS Dextrose 50 ml UD PRN IV 02/09/24 15:15 Hydralazine HCl 10 mg Q6HP PRN IV 02/10/24 17:15 02/10/24 17:48 10 MG Laboratory Results Laboratory Tests 02/09/24 05:47 Assessment/Plan Assessment/Plan COPD Exacerbation suspected super imposed PNA DM HTN continue current tx supplemental o2 Plan discussed with: Patient My Orders Orders - KAMI MOSES DO Procedure Category Date Status Time * Veneer Jointer Returner CONS 02/10/24 Transmitted Consult Discharge DISCHARGE 02/10/24 Transmitted 15:45 * Veneer Jointer Returner CONS 02/10/24 Transmitted Consult Date of Service: Feb 11, 2024 Billing Provider: KAMI MOSES DO Common Visit Codes: [id number] INP/OBS CARE(HIGH) KAMI MOSES DO Feb 11, 2024 13:30
== END 2024-02-11 18:00 | DRG 190 ==
LOC: EDBD 06:52 → ER 06:52 → TELE 08:35 → TELE-EAST 14:25 → EAST 02-10 13:21
PROVIDERS: ADMIT Hospitalist; ATTEND Internal Medicine
DX: J44.1 Chronic obstructive pulmonary disease with (acute) exacerbation (principal); J15.69 Pneumonia due to other Gram-negative bacteria; J15.9 Unspecified bacterial pneumonia; J90 Pleural effusion, not elsewhere classified; J98.11 Atelectasis; E66.01 Morbid (severe) obesity due to excess calories; I10 Essential (primary) hypertension; E87.6 Hypokalemia; J98.4 Other disorders of lung; E11.9 Type 2 diabetes mellitus without complications; F17.210 Nicotine dependence, cigarettes, uncomplicated; Z74.01 Bed confinement status; Z99.81 Dependence on supplemental oxygen; Z82.0 Family history of epilepsy and other diseases of the nervous system; Z79.4 Long term (current) use of insulin; Z79.899 Other long term (current) drug therapy; Z68.36 Body mass index [BMI] 36.0-36.9, adult
CPT/HCPCS: 36415; 71045; 80048; 82962; 83880; 84484; 85025; 94640; 97110; 97116; 97163; 97530; 99291; G0378; J1815